=== PATIENT | male | born 1960 | race Caucasian/White ===

== ENCOUNTER → 2016-10-03 | Outpatient (CLI) | payer OTHER ==
[~2016-10-03] MED LIST: AMOX TR-K CLV1 EAC3 PO; ANUSOL-HC25 MG RECTAL; APAP500 PO; ASPIR 8181 MG PO; CEFTIN500 MG PO; FLONASE 0.05%50 MCG NASAL; NEURONTIN 300300 M1 PO; ONDANSETRON HCL4 M2 PO; PERCOCET PO; PROGRAF0.5 MG PO; PROTONIX 20 MG20 M1 PO; PROTONIX40 M1 PO; TYLENOL325 MG PO; VANCOCIN 250 M250 M1 PO; VANCOMYCIN100 MG/M1 PO; VANCOMYCIN100 MG/ML PO
== END ==
LOC: RAD 15:22
DX: A04.7 Enterocolitis due to Clostridium difficile (principal); K52.89 Other specified noninfective gastroenteritis and colitis; J98.11 Atelectasis

== ENCOUNTER → 2017-04-27 | Outpatient (CLI) | payer OTHER | LOC: RAD 12:58 | DX: J90 Pleural effusion, not elsewhere classified (principal); R06.00 Dyspnea, unspecified ==

== ENCOUNTER → 2020-11-11 | Outpatient (CLI) | payer OTHER | LOC: LAB 09:13 | PROVIDERS: ATTEND Internal Medicine | DX: R09.81 Nasal congestion (principal); Z20.822 Contact with and (suspected) exposure to COVID-19 ==